=== PATIENT | male | born 1950 | race Caucasian/White ===

== ENCOUNTER → 2018-07-26 | Outpatient (CLI) | payer OTHER ==
[~2018-07-26] MED LIST: ASPIRIN81 M2 PO; BACTRIM DS TAB1 EACH PO; BENADRYL25 MG PO; CEFTRIAXONE2 G1 IVPB; CENTRUM SILVER1 EAC4 PO; CINNAMON500 MG PO; ENOXAPARIN100 MG/1 M; ENOXAPARIN40 MG/0.4 SUBQ; FISH OIL 1,2001 EAC4 PO; GLIPIZIDE5 MG PO; GLUCOPHAGE1000 MG PO; HEALTHY EYES C1 EACH PO; KEFLEX500 MG PO; LEVEMIR SUBQ; LIPITOR10 MG PO; LISINOPRIL40 MG PO; NIACINAMIDE500 M1 PO; RIFADIN300 MG PO; ROXICET 5-3251 EACH PO; VANCOMYCIN1.25 GM/21; VITAMIN B-12500 MCG PO; VITAMIN D3400 UNIT PO; VITAMIN E400 UNIT PO; VITAMINC500 PO; ZESTRIL20 MG PO
== END ==
LOC: M.RAD 13:21
DX: M19.071 Primary osteoarthritis, right ankle and foot (principal)